=== PATIENT | female | born 1965 ===

== ENCOUNTER 2017-02-11 10:06 | Emergency (ER) | payer OTHER, SELFPAY ==
[2017-02-11 10:25] VITALS: BP 112/70; PULSE 64; RESP 18; TEMP 98; O2SAT 98
--- NOTE | 2017-02-11 10:51 | ED PDOC ---
Upper Extremity Pain/Injury Time Seen by Provider: 02/11/17 10:27 Chief Complaint (Nursing): Upper Extremity Problem/Injury Chief Complaint (Provider): Rt. upper shoulder and wrist pain History Per: Patient History/Exam Limitations: no limitations Onset/Duration Of Symptoms: Days (24 hours ) Current Symptoms Are (Timing): Still Present Quality: Other (dull pain associated with numbness and tingling) Severity: Severe Additional Complaint(s): Pt. here today for evaluation of Pain in her arm localized to her Rt. shoulder and Rt. wrist. Pt. states has had a chronic pain for 8 months but last night pain was intense and could not sleep. Pain is described as a dull ache some times sharp radiating from her shoulder to her arm and wrist. Associated symptoms include numbness and tingling of Rt. first, 2nd, and third digit. Pt. also reports weakness in her Rt. upper arm that has been getting worse. Pt. does state that symptoms usually worse after work. Pt. denies any falls, injury , or trauma. Pt. states she has been taking Mobic and Levocetrizine for her allergies and has not taken any medication for her pain. On ROS, pt. denies any headache, chest pain, abdominal pain, dyspnea, fever, chills, palpitations, lightheadedness, syncope, dysuria, or incontinence. Past Medical History Vital Signs: Last Vital Signs Temp 98.0 F 02/11/17 10:24 Pulse 64 02/11/17 10:24 Resp 18 02/11/17 10:24 BP 112/70 02/11/17 10:24 Pulse Ox 98 02/11/17 10:24 - Medical History PMH: No Chronic Diseases - Surgical History Other surgeries: Breast augmentation - Family History Family History: States: Unknown Family Hx - Social History Current smoker - smoking cessation education provided: No Ex-Smoker (has not smoked in the last 12 months): No Alcohol: None Drugs: Denies - Immunization History Hx Tetanus Toxoid Vaccination: No Hx Influenza Vaccination: No Hx Pneumococcal Vaccination: No - Home Medications Home Medications: Ambulatory Orders Medication Instructions Recorded Ibuprofen [Motrin] 600 mg PO Q6 #20 tab 10/07/15 Oxycodone HCl/Acetaminophen 1 tab PO Q4 #10 tab 10/07/15 [Percocet 325 mg-5 mg] Naproxen 500 mg PO Q12 PRN #20 tab 02/11/17 - Allergies Allergies/Adverse Reactions: Allergies Allergy/AdvReac Type Severity Reaction Status Date / Time No Known Allergies Allergy Verified 10/07/15 14:43 Review of Systems Musculoskeletal: Positive for: Shoulder Pain (See HPI), Arm Pain (See HPI) Physical Exam - Reviewed Vital Signs Reviewed: Yes - Physical Exam Appears: Positive for: Non-toxic, No Acute Distress Neck: Positive for: Painless ROM, Supple Cardiovascular/Chest: Positive for: Regular Rate, Rhythm. Negative for: Murmur Respiratory: Positive for: Normal Breath Sounds. Negative for: Wheezing, Respiratory Distress Extremity: Positive for: Other (+Rt. shoulder tenderness in the area of trapezius, +Phalen test on Rt. wrist, Strength, +3/5 Rt. wrist & +5/5 Lt. 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 female with complaint of pain and weakness of Rt. upper extremity that improved with Naproxen. 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 CT cervical spine without contrast as below with no significant findings. Pt. to follow up with PMD. Dr. Villasenor and discharge with Naproxen. PROCEDURE: CT Cervical Spine without contrast HISTORY: Right arm weakness and right shoulder pain COMPARISON: None available. TECHNIQUE: Axial computed tomography images were obtained of the cervical spine without the use of intravenous contrast. Coronal and sagittal reformatted images were created and reviewed. Radiation dose: Total exam DLP = 408.05 mGy-cm. This CT exam was performed using one or more of the following dose reduction techniques: Automated exposure control, adjustment of the mA and/or kV according to patient size, and/or use of iterative reconstruction technique. FINDINGS: VERTEBRAE: No fracture. Normal alignment. No destructive bony lesion. Straightening of the cervical spine which could be positional or due to muscle spasm. DISCS/SPINAL CANAL/NEURAL FORAMINA: No significant central canal or neural foraminal stenosis. Small disc bulging seen at C4-C5 and C5-C6 without evidence of significant spinal stenosis. Discs heights are grossly preserved. PARASPINAL SOFT TISSUES: Unremarkable. OTHER FINDINGS: None. IMPRESSION: Mild spondylosis. Small disc bulging seen at C4-C5 and C5-C6 without evidence of significant spinal or neural foraminal narrowing. Straightening of the cervical spine which could be due to muscle spasm. If clinically warranted further assessment by MRI may be obtained. Disposition - Clinical Impression Clinical Impression: Shoulder pain, Wrist pain, acute - Patient ED Disposition Is Patient to be Admitted: No Discussed With Dr.: Janelle Cardona - Disposition Referrals: Lc Villasenor [Family Provider] - Disposition: Routine/Home Disposition Time: 13:16 Condition: GOOD Prescriptions: Naproxen 500 mg PO Q12 PRN #20 tab PRN Reason: Pain, Moderate (4-7)
[2017-02-11] MEDS ORDERED: Naproxen 500 MG TAB PO STA (10:55)
[2017-02-11] MEDS ORDERED: Naproxen 500 MG TAB PO ONE (11:19)
--- NOTE | 2017-02-11 12:57 | CT ---
PROCEDURE: CT Cervical Spine without contrast HISTORY: Right arm weakness and right shoulder pain COMPARISON: None available. TECHNIQUE: Axial computed tomography images were obtained of the cervical spine without the use of intravenous contrast. Coronal and sagittal reformatted images were created and reviewed. Radiation dose: Total exam DLP = 408.05 mGy-cm. This CT exam was performed using one or more of the following dose reduction techniques: Automated exposure control, adjustment of the mA and/or kV according to patient size, and/or use of iterative reconstruction technique. FINDINGS: VERTEBRAE: No fracture. Normal alignment. No destructive bony lesion. Straightening of the cervical spine which could be positional or due to muscle spasm. DISCS/SPINAL CANAL/NEURAL FORAMINA: No significant central canal or neural foraminal stenosis. Small disc bulging seen at C4-C5 and C5-C6 without evidence of significant spinal stenosis. Discs heights are grossly preserved. PARASPINAL SOFT TISSUES: Unremarkable. OTHER FINDINGS: None. IMPRESSION: Mild spondylosis. Small disc bulging seen at C4-C5 and C5-C6 without evidence of significant spinal or neural foraminal narrowing. Straightening of the cervical spine which could be due to muscle spasm. If clinically warranted further assessment by MRI may be obtained.
== END 2017-02-11 14:00 | disposition home or self-care (01) ==
LOC: H.ER 10:06
DX: M25.511 Pain in right shoulder (principal); M25.531 Pain in right wrist

== ENCOUNTER 2017-06-21 17:35 | Emergency (ER) | payer SELFPAY ==
[2017-06-21 18:00] VITALS: BP 123/83; PULSE 74; RESP 18; O2SAT 99
--- NOTE | 2017-06-21 18:44 | ED PDOC ---
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 Patient states she visited her PCP and was given Augmentin and Naproxen as prescribed with no relief of her symptoms. Of note, patient states she had previously injured herself at work and was evaluated at this facility; patient had a CT scan of her C-Spine performed on 08/18 which indicated disk bulge on C4 through C6. Patient also had a mammogram on 10/06/16 which resulted normal. Patient reports a fever of 1-2 degrees last night but denies any nausea, vomiting, or chills. Of note, patient reports she had breast augmentation surgery done 10 years ago and she is concerned because of the pain present in her right breast. She offers no other medical complaints. Past Medical History Reviewed: Historical Data, Nursing Documentation, Vital Signs Vital Signs: Last Vital Signs Temp Pulse 74 06/21/17 17:57 Resp 18 06/21/17 17:57 BP 123/83 06/21/17 17:57 Pulse Ox 99 06/21/17 17:57 - Medical History PMH: No Chronic Diseases - Surgical History Other surgeries: breast augmentation - Family History Family History: States: No Known Family Hx, Unknown Family Hx - Living Arrangements Living Arrangements: With Family - Immunization History Hx Tetanus Toxoid Vaccination: No Hx Influenza Vaccination: No Hx Pneumococcal Vaccination: No - Home Medications Home Medications: Ambulatory Orders Medication Instructions Recorded Ibuprofen [Motrin] 600 mg PO Q6 #20 tab 10/07/15 Oxycodone HCl/Acetaminophen 1 tab PO Q4 #10 tab 10/07/15 [Percocet 325 mg-5 mg] Naproxen 500 mg PO Q12 PRN #20 tab 02/11/17 Tramadol HCl [Ultram] 50 mg PO Q6 #15 tab 06/21/17 - Allergies Allergies/Adverse Reactions: Allergies Allergy/AdvReac Type Severity Reaction Status Date / Time No Known Allergies Allergy Verified 10/07/15 14:43 Review of Systems ROS Statement: Except As Marked, All Systems Reviewed And Found Negative Constitutional: Positive for: Fever. Negative for: Chills Cardiovascular: Positive for: Other (right sided breast pain) Gastrointestinal: Negative for: Nausea, Vomiting Musculoskeletal: Positive for: Arm Pain (right) Physical Exam - Reviewed Nursing Documentation Reviewed: Yes Vital Signs Reviewed: Yes - Physical Exam Appears: Positive for: Non-toxic, No Acute Distress Skin: Positive for: Warm, Dry Neck: Positive for: Supple Cardiovascular/Chest: Positive for: Regular Rate, Rhythm Respiratory: Negative for: Respiratory Distress Extremity: Positive for: Normal ROM, Tenderness, Other (right shoulder: nuerovac intact no AC joint tednerness no evidence of cellulities no streaking no warmth no tednderess to breast area no nipple changes ). Negative for: Deformity, Swelling Neurologic/Psych: Positive for: Alert, Oriented. Negative for: Motor/Sensory Deficits - Laboratory Results Result Diagrams: 06/21/17 18:58 06/21/17 18:58 - ECG O2 Sat by Pulse Oximetry: 99 (RA) Pulse Ox Interpretation: Normal Medical Decision Making Medical Decision Making: Time: 1827 Impression: Right arm pain, likely musculoskeletal Plan: -- CMP -- CBC -- Toradol 30 mg IM Reassess Pt with normal impression with labs-no evidence of infection advised to have f.u with pmd. will be d/c with ultram for pain and advised to have f.u with pmd Scribe Attestation: Documented by Juhi Mera acting as a scribe for AGUILAR Will Provider Attestation: All medical record entries made by the Scribe were at my direction and personally dictated by me. I have reviewed the chart and agree that the record accurately reflects my personal performance of the history, physical exam, medical decision making, and the department course for this patient. I have also personally directed, reviewed, and agree with the discharge instructions and disposition. Disposition - Clinical Impression Clinical Impression: Arm pain - Patient ED Disposition Is Patient to be Admitted: No Counseled Patient/Family Regarding: Studies Performed, Diagnosis, Need For Followup, Rx Given - Disposition Disposition: Routine/Home Disposition Time: 19:27 Condition: STABLE Prescriptions: Tramadol HCl [Ultram] 50 mg PO Q6 #15 tab Instructions: Arm Pain (ED), Arthralgia (ED), Paresthesia (ED) Forms: [email or web address] ([place])
[2017-06-21 19:07] LABS: BASO % 0.4 % (0.0-2.0); EOS % 0.1 % (0.0-4.0); HEMATOCRIT 37.8 % (34.0-47.0); LYMPH # 2.4 K/uL (1.0-4.3); LYMPH % 21.7 % (20.0-40.0); MEAN CORPUSCULAR HEMOGLOBIN 29.1 pg (27.0-31.0); MEAN CORPUSCULAR HGB CONC 33.9 g/dL (33.0-37.0); MEAN PLATELET VOLUME 7.3 fl (7.2-11.7); MONO # 0.6 K/uL (0.0-0.8); MONO % 5.2 % (0.0-10.0); NEUT # 8.1 K/uL (1.8-7.0); NEUT % 72.6 % (50.0-75.0); NRBC % 0.1 % (0.0-0.0); RED CELL DISTRIBUTION WIDTH 14.1 % (11.5-14.5); WHITE BLOOD COUNT 11.1 K/uL (4.8-10.8)
[2017-06-21 19:14] LABS: MEAN CELL VOLUME 85.9 fl (81.0-99.0)
[2017-06-21 19:21] LABS: ALB/GLOB RATIO 1.4 (1.0-2.1); ALKALINE PHOSPHATASE 116 U/L (38-126); ALT/SGPT 43 U/L (9-52); AST/SGOT 21 U/L (14-36); BILIRUBIN,TOTAL 0.2 mg/dl (0.2-1.3); BLOOD UREA NITROGEN 15 mg/dl (7-17); CALCIUM 9.4 mg/dL (8.4-10.2); CARBON DIOXIDE 22 mmol/L (22-30); CHLORIDE 106 mmol/L (98-107); GFR AFRICAN-AMERICAN > 60; GLUCOSE,RANDOM 150 mg/dL (65-105); POTASSIUM 4.3 MMOL/L (3.6-5.0); SODIUM 142 mmol/l (132-148); TOTAL PROTEIN 7.9 G/DL (6.3-8.2)
== END 2017-06-21 19:43 | disposition home or self-care (01) ==
LOC: H.ER 17:35
DX: M25.511 Pain in right shoulder (principal)
CPT/HCPCS: 80053; 85025; 96374; 99282; J1885

== ENCOUNTER 2017-10-25 15:08 | Emergency (ER) | payer OTHER ==
[2017-10-25] MEDS ORDERED: Sodium Chloride 0.9% 1,000 ML IV STA (16:10)
--- NOTE | 2017-10-25 16:11 | ED PDOC ---
HPI: General Adult Time Seen by Provider: 10/25/17 15:57 Chief Complaint (Nursing): Chest Pain Chief Complaint (Provider): Left rib pain History Per: Patient History/Exam Limitations: no limitations Onset/Duration Of Symptoms: Days (x2) Current Symptoms Are (Timing): Still Present Similar Symptoms Previously: None Additional Complaint(s): 51 year old female presents to ther ER complaining of 2 days of constant left rib pain. Denies any fall or injury. Patient denies any shortness of breath, headache, dizziness, vomiting, diarrhea, numbness, tingling, or urinary problems. States initially her right ear was ringing, which has since resolved. Also denies calf pain, recent surgery or long distance travel. PMD: Dr. Villasenor Past Medical History Reviewed: Historical Data, Nursing Documentation, Vital Signs Vital Signs: Last Vital Signs Temp 97.7 F 10/25/17 15:20 Pulse 78 10/25/17 17:41 Resp 16 10/25/17 15:20 BP 134/81 10/25/17 15:20 Pulse Ox 99 10/25/17 16:17 - Medical History PMH: No Chronic Diseases - Surgical History Surgical History: - Family History Family History: States: Unknown Family Hx - Immunization History Hx Tetanus Toxoid Vaccination: No Hx Influenza Vaccination: No Hx Pneumococcal Vaccination: No - Home Medications Home Medications: Ambulatory Orders Medication Instructions Recorded Ibuprofen [Motrin] 600 mg PO TID 7 Days tab 10/25/17 - Allergies Allergies/Adverse Reactions: Allergies Allergy/AdvReac Type Severity Reaction Status Date / Time No Known Allergies Allergy Verified 10/07/15 14:43 Review of Systems ROS Statement: Except As Marked, All Systems Reviewed And Found Negative Constitutional: Negative for: Fever, Chills Eyes: Negative for: Vision Change ENT: Positive for: Other (Right ear ringing, now resolved) Cardiovascular: Positive for: Chest Pain (left rib pain). Negative for: Light Headedness Respiratory: Negative for: Shortness of Breath Gastrointestinal: Negative for: Vomiting, Diarrhea Genitourinary Female: Negative for: Dysuria, Frequency Musculoskeletal: Negative for: Arm Pain, Leg Pain Neurological: Negative for: Weakness, Numbness (and tingling), Headache, Dizziness Physical Exam - Reviewed Nursing Documentation Reviewed: Yes Vital Signs Reviewed: Yes - Physical Exam Appears: Positive for: Non-toxic, No Acute Distress Head Exam: Positive for: ATRAUMATIC, NORMAL INSPECTION, NORMOCEPHALIC Skin: Positive for: Normal Color, Warm, Dry Eye Exam: Positive for: EOMI, Normal appearance, PERRL ENT: Positive for: Normal ENT Inspection, TM Is/Are (clear b/l) Neck: Positive for: Normal, Painless ROM, Supple Cardiovascular/Chest: Positive for: Regular Rate, Rhythm. Negative for: Murmur Respiratory: Positive for: Normal Breath Sounds. Negative for: Accessory Muscle Use, Respiratory Distress Gastrointestinal/Abdominal: Positive for: Soft. Negative for: Tenderness, Guarding, Rebound Back: Positive for: Normal Inspection, Other (tenderness to left lower rib). Negative for: L CVA Tenderness, R CVA Tenderness, Vertebral Tenderness Extremity: Positive for: Normal ROM. Negative for: Pedal Edema, Calf Tenderness Neurologic/Psych: Positive for: Alert, Oriented. Negative for: Motor/Sensory Deficits - Laboratory Results Result Diagrams: 10/25/17 16:29 10/25/17 16:29 Interpretation Of Abn Labs: no acute - ECG ECG: Positive for: Interpreted By Me, Viewed By Me ECG Rhythm: Positive for: Normal QRS, Normal ST Segment, Sinus Rhythm O2 Sat by Pulse Oximetry: 99 (RA) Pulse Ox Interpretation: Normal - Radiology X-Ray: Interpreted by Me, Viewed By Md X-Ray Interpretation: No Acute Disease - Progress ED Course And Treament: 1824: Stable. AAOx3. Pain free. Tolerated Po. Fu with pcp. Medical Decision Making Medical Decision Making: Initial Impression: Left rib pain Time: 16:10 Initial Plan: * EKG * CMP * Troponin I * Urine * CBC * Chest x-ray * IV fluids * Toradol 15 mg IV * Reassessment Scribe Attestation: Documented by Cindy Beltran, acting as a scribe for Nixon Miller MD Provider Scribe Attestation: All medical record entries made by the Scribe were at my direction and personally dictated by me. I have reviewed the chart and agree that the record accurately reflects my personal performance of the history, physical exam, medical decision making, and the department course for this patient. I have also personally directed, reviewed, and agree with the discharge instructions and disposition. Disposition - Clinical Impression Clinical Impression: Chest wall pain - Patient ED Disposition Is Patient to be Admitted: No Counseled Patient/Family Regarding: Studies Performed, Diagnosis, Need For Followup, Rx Given - Disposition Referrals: [facility] [Outside] - 10/28/17 Disposition: Routine/Home Disposition Time: 18:25 Condition: STABLE Additional Instructions: Return if not better in 3 days. Prescriptions: Ibuprofen [Motrin] 600 mg PO TID 7 Days tab Instructions: Chest Pain (DC) Print Language: BELIZEAN
[2017-10-25 16:35] LABS: BASO % 0.4 % (0.0-2.0); EOS # 0.1 K/uL (0.0-0.7); EOS % 1.1 % (0.0-4.0); HEMOGLOBIN 12.4 g/dL (12.0-16.0); LYMPH # 2.3 K/uL (1.0-4.3); LYMPH % 36.2 % (20.0-40.0); MEAN CELL VOLUME 85.4 fl (81.0-99.0); MEAN CORPUSCULAR HEMOGLOBIN 29.7 pg (27.0-31.0); MEAN CORPUSCULAR HGB CONC 34.8 g/dL (33.0-37.0); MEAN PLATELET VOLUME 7.3 fl (7.2-11.7); MONO # 0.5 K/uL (0.0-0.8); MONO % 7.5 % (0.0-10.0); NEUT # 3.6 K/uL (1.8-7.0); NEUT % 54.8 % (50.0-75.0); NRBC % 0.2 % (0.0-0.0); RBC 4.19 Mil/uL (3.80-5.20); RED CELL DISTRIBUTION WIDTH 13.5 % (11.5-14.5); WHITE BLOOD COUNT 6.5 K/uL (4.8-10.8)
[2017-10-25 17:04] LABS: ALB/GLOB RATIO 1.2 (1.0-2.1); ALBUMIN 4.1 g/dL (3.5-5.0); ALT/SGPT 38 U/L (9-52); AST/SGOT 26 U/L (14-36); BLOOD UREA NITROGEN 15 mg/dl (7-17); CALCIUM 8.9 mg/dL (8.4-10.2); GFR AFRICAN-AMERICAN > 60; GFR NON-AFRICAN AMERICAN > 60
--- NOTE | 2017-10-25 17:36 | RAD ---
HISTORY: pain COMPARISON: No prior. TECHNIQUE: Chest PA and lateral FINDINGS: LUNGS: No active pulmonary disease. PLEURA: No significant pleural effusion identified. No pneumothorax apparent. CARDIOVASCULAR: Normal. OSSEOUS STRUCTURES: No significant abnormalities. VISUALIZED UPPER ABDOMEN: Normal. OTHER FINDINGS: None. IMPRESSION: No active disease.
[2017-10-25 17:42] VITALS: PULSE 78
[2017-10-25 19:33] VITALS: BP 100/70; RESP 20; TEMP 98.3; O2SAT 98
--- NOTE | 2017-10-26 19:15 | CARD ---
APPROVED REPORT EKG Measurement Heart [id number] <Conclusion> Normal sinus rhythm Normal ECG
== END 2017-10-25 19:32 | disposition home or self-care (01) ==
LOC: H.ER 15:08
DX: R07.89 Other chest pain (principal)
CPT/HCPCS: 71046; 80053; 81025; 84484; 85025; 93005; 96361; 96374; 99283; J1885; J7040

== ENCOUNTER 2018-11-06 15:32 | Emergency (ER) | payer OTHER ==
[2018-11-06 16:17] VITALS: PULSE 78; O2SAT 98
[2018-11-06] MEDS ORDERED: Sodium Chloride 0.9% 1,000 ML IV STA (16:46)
--- NOTE | 2018-11-06 16:50 | ED PDOC ---
HPI: General Adult Time Seen by Provider: 11/06/18 16:48 Chief Complaint (Nursing): Headache Chief Complaint (Provider): headache History Per: Patient (53 y/o female here with complaint of headache this morning severe noted by right eye and side of face. Feels generally tired secondary to headache. No vomiting/diarrhea/cough. Notes chills. Patient denies any h/o migraines.) Past Medical History Reviewed: Historical Data, Nursing Documentation, Vital Signs Vital Signs: Last Vital Signs Temp 98.7 F 11/06/18 16:14 Pulse 78 11/06/18 16:14 Resp 18 11/06/18 16:14 BP 128/82 11/06/18 16:14 Pulse Ox 98 11/06/18 16:14 - Surgical History Surgical History: - Family History Family History: States: Unknown Family Hx - Immunization History Hx Tetanus Toxoid Vaccination: No Hx Influenza Vaccination: No Hx Pneumococcal Vaccination: No - Home Medications Home Medications: Ambulatory Orders Medication Instructions Recorded Ibuprofen [Motrin] 600 mg PO TID 7 Days tab 10/25/17 - Allergies Allergies/Adverse Reactions: Allergies Allergy/AdvReac Type Severity Reaction Status Date / Time No Known Allergies Allergy Verified 11/06/18 16:14 Review of Systems ROS Statement: Except As Marked, All Systems Reviewed And Found Negative Physical Exam - Reviewed Nursing Documentation Reviewed: Yes Vital Signs Reviewed: Yes - Physical Exam Appears: Positive for: Well, Non-toxic, No Acute Distress Head Exam: Positive for: ATRAUMATIC, NORMAL INSPECTION, NORMOCEPHALIC Skin: Positive for: Normal Color, Warm, DRY Eye Exam: Positive for: EOMI, Normal appearance, PERRL ENT: Positive for: Normal ENT Inspection Neck: Positive for: Normal, Painless ROM Cardiovascular/Chest: Positive for: Regular Rate, Rhythm Respiratory: Positive for: CNT, Normal Breath Sounds Gastrointestinal/Abdominal: Positive for: Normal Exam, Soft Back: Positive for: Normal Inspection Extremity: Positive for: Normal ROM Neurological/Psych: Positive for: Awake, Alert, Normal Tone - Laboratory Results Result Diagrams: 11/06/18 17:05 11/06/18 17:05 - ECG O2 Sat by Pulse Oximetry: 98 - Progress ED Course And Treament: reglan 10 mg iv x 1 dose NS [address] Head: wnl Patient re-examined at 17:59pm with resolution of symptoms. Disposition - Clinical Impression Clinical Impression: Migraine - Patient ED Disposition Is Patient to be Admitted: No - Disposition Referrals: [facility] [Outside] Disposition: Routine/Home Disposition Time: 18:00 Condition: FAIR Instructions: Migraine Headache (DC)
--- NOTE | 2018-11-06 17:17 | CT ---
Date of service: 11/06/2018 PROCEDURE: CT HEAD WITHOUT CONTRAST. HISTORY: Headache COMPARISON: None available. TECHNIQUE: Axial computed tomography images were obtained through the head/brain without intravenous contrast. Radiation dose: Total exam DLP = 803.84 mGy-cm. This CT exam was performed using one or more of the following dose reduction techniques: Automated exposure control, adjustment of the mA and/or kV according to patient size, and/or use of iterative reconstruction technique. FINDINGS: HEMORRHAGE: No intracranial hemorrhage. BRAIN: Benito-white matter differentiation is preserved. There is no mass, mass effect or abnormal extra-axial fluid collection. There is no territorial infarction. The midline sagittal structures are normal. VENTRICLES: The ventricles are normal in size, shape and configuration. CALVARIUM: There is no calvarial fracture or extracranial soft tissue swelling. PARANASAL SINUSES: Predominantly clear. MASTOID AIR CELLS: Predominantly clear. OTHER FINDINGS: None. IMPRESSION: No acute intracranial abnormality.
[2018-11-06 17:47] LABS: BASO % 0.6 % (0.0-2.0); EOS # 0.1 K/uL (0.0-0.7); EOS % 1.4 % (0.0-4.0); HEMOGLOBIN 12.7 g/dL (12.0-16.0); LYMPH # 2.4 K/uL (1.0-4.3); LYMPH % 36.1 % (20.0-40.0); MEAN CELL VOLUME 85.5 fl (81.0-99.0); MEAN CORPUSCULAR HGB CONC 33.9 g/dL (33.0-37.0); MEAN PLATELET VOLUME 7.8 fl (7.2-11.7); MONO # 0.4 K/uL (0.0-0.8); MONO % 6.5 % (0.0-10.0); NEUT # 3.6 K/uL (1.8-7.0); NEUT % 55.4 % (50.0-75.0); NRBC % 0.1 % (0.0-0.0); RBC 4.37 Mil/uL (3.80-5.20); WHITE BLOOD COUNT 6.6 K/uL (4.8-10.8)
[2018-11-06 17:50] LABS: ALB/GLOB RATIO 1.3 (1.0-2.1); ALBUMIN 4.4 g/dL (3.5-5.0); ALT/SGPT 27 U/L (9-52); AST/SGOT 28 U/L (14-36); BLOOD UREA NITROGEN 14 mg/dl (7-17); CALCIUM 9.4 mg/dL (8.4-10.2); GFR NON-AFRICAN AMERICAN > 60
[2018-11-06 18:20] VITALS: BP 120/70; RESP 20; TEMP 97.5
== END 2018-11-06 18:32 | disposition home or self-care (01) ==
LOC: H.ER 15:32
DX: G43.909 Migraine, unspecified, not intractable, without status migrainosus (principal)
CPT/HCPCS: 70450; 80053; 81025; 85025; 87804; 96374; 99285; J2765; J7030